=== PATIENT | female | born 1935 | race Caucasian/White ===

== ENCOUNTER 2016-08-16 03:17 | Observation (INO) | payer MEDICARE ==
[2016-08-16] VITALS (9 sets, daily range): BP systolic 148–199; BP diastolic 69–98; PULSE 49–70; RESP 16–24; TEMP 96–97.9; O2SAT 95–100
[~2016-08-16] VITALS: Ht 165.1 cm; Wt 86.5 kg
[~2016-08-16 03:17] MED LIST: ALDA2525 PO; ASCO500C PO; ASPI81TA17 PO; B COTAB3 SL; CENTTAB9 PO; IRONCAP2 PO; LEVO.05 PO; LISI-357 PO; TOPR25TA2 PO; TRAM50 PO; VITA400C70 PO
[2016-08-16] MEDS ORDERED: SODIUM CHLOR 0.9% 1000 ML INJ 1,000 ML IV SCH (03:51)
[2016-08-16] MEDS ORDERED: ALDA2525 PO (03:53)
[2016-08-16] MEDS ORDERED: METO25TA6 PO (03:53)
[2016-08-16] MEDS ORDERED: LISI-519 PO (03:53)
[2016-08-16] MEDS ORDERED: NEXI20CA PO (03:53)
[2016-08-16] MEDS ORDERED: LEVO50TA4 PO (03:57)
[2016-08-16] MEDS ORDERED: PANTOPRAZOLE SODIUM 40 MG VIAL IVP ONE (04:00)
[2016-08-16] MEDS ORDERED: ALUMINUM/MAGNESIUM/SIMETH 30 ML CUP PO ONE (04:00)
[2016-08-16] MEDS ORDERED: LIDOCAINE VISCOUS 2% SOLN 15 ML UDC PO ONE (04:00)
[2016-08-16] MEDS ORDERED: FAMOTIDINE 20 MG/2 ML VIAL IV PUSH ONE (04:00)
[2016-08-16] MEDS ORDERED: SODIUM CHLORIDE 0.9% FLUSH 5 ML FLUSH IVF PRN (04:00)
--- NOTE | 2016-08-16 04:01 | PD ---
HPI Chief Complaint: Abdominal Pain Time Seen by Provider: 03:51 Travel History International Travel<30 days: No Contact w/Intl Traveler<30days: No Traveled to known affect area: No History of Present Illness HPI The patient is an 81-year-old female that complains of upper abdominal pain for 3 hours. She states she does have a history of a stomach ulcer and apparently was put on omeprazole by her sports medicine specialist, Dr. Jansen. She has an appointment with Dr. Cardoza on September 20. She denies any melanotic or bloody stools. She has had a gastric bypass and cholecystectomy. PFSH Past Medical History Heart Rhythm Problems: Yes Cancer: No Cardiac Catheterization: Yes Cardiovascular Problems: Yes High Cholesterol: Yes Chest Pain: Yes (CAD) Coronary Artery Disease: Yes (angioplastty 1994 WITH STENTS ) Diabetes: No Diminished Hearing: No Hepatitis: No Hiatal Hernia: No Hypertension: Yes Medical other: Yes (NARCOLEPSY, ARTHRITIS, BACK PROBLEMS) Neurologic: Yes (NARCOLEPSY) Respiratory: No Immunizations Current: Yes (SHINGLES) Shingles: Yes Thyroid Disease: Yes (HYPO) Influenza Vaccination: Yes Menopausal: Yes Past Surgical History Abdominal Surgery: Yes (gastric bypass, 95, OVARIAN SURGERY) Appendectomy: Yes Cholecystectomy: Yes (1994) Coronary Stent: Yes (1994) Joint Replacement: Yes (BILATERAL KNEE) Pacemaker: No Tonsillectomy: Yes Other Surgery: Yes (CARPAL TUNNEL) Social History Alcohol Use: No Tobacco Use: No Substance Use: No Allergies-Medications (Allergen,Severity, Reaction): Coded Allergies: No Known Allergies (Verified , 08/16/16) Reported Meds & Prescriptions Reported Meds & Active Scripts Active Reported Levothyroxine (Levothyroxine Sodium) 50 Mcg Tab 50 Mcg PO DAILY Metoprolol Succinate ER 24 HR (Metoprolol Succinate) 25 Mg Tab 25 Mg PO BID Lisinopril 5 Mg Tab 5 Mg PO DAILY Aldactazide (HCTZ/Spironolactone) 25-25 Mg Tab 1 Tab PO DAILY Review of Systems Except as stated in HPI: all other systems reviewed are Neg Physical Exam Narrative GENERAL: The patient is alert, oriented 3 and slight apparent distress with her epigastric pain. Her vital signs show blood pressure 150/69 and heart rate of 50 but are otherwise normal. SKIN: Warm and dry. HEAD: Atraumatic. Normocephalic. EYES: Pupils equal and round. No scleral icterus. No injection or drainage. ENT: No nasal bleeding or discharge. Mucous membranes pink and moist. NECK: Trachea midline. No JVD. CARDIOVASCULAR: Regular rate and rhythm. No murmur appreciated. RESPIRATORY: No accessory muscle use. Clear to auscultation. Breath sounds equal bilaterally. GASTROINTESTINAL: Abdomen soft, with tenderness to direct palpation on the midline epigastrium, nondistended. Hepatic and splenic margins not palpable. No guarding or rebound is present. MUSCULOSKELETAL: No obvious deformities. No clubbing. No cyanosis. No edema. NEUROLOGICAL: Awake and alert. No obvious cranial nerve deficits. Motor grossly within normal limits. Normal speech. PSYCHIATRIC: Appropriate mood and affect; insight and judgment normal. Data Data Last Documented VS Vital Signs Date Time Temp Pulse Resp B/P Pulse Ox O2 Delivery O2 Flow Rate FiO2 08/16/16 06:10 64 24 171/79 98 Nasal Cannula 2 177/92 08/16/16 03:25 97.5 Orders Complete Blood Count With Diff (08/16/16 03:51) Comprehensive Metabolic Panel (08/16/16 03:51) Lipase (08/16/16 03:51) Iv Access Insert/Monitor (08/16/16 03:51) Ecg Monitoring (08/16/16 03:51) Oximetry (08/16/16 03:51) Pantoprazole Inj (Protonix Inj) (08/16/16 04:00) Sodium Chlor 0.9% 1000 Ml Inj (Ns 1000 M (08/16/16 03:51) Sodium Chloride 0.9% Flush (Ns Flush) (08/16/16 04:00) Famotidine Inj (Pepcid Inj) (08/16/16 04:00) Al-Mag Hy-Si 40-40-4 Mg/Ml Liq (Mag-Al P (08/16/16 04:00) Lidocaine 2% Viscous (Xylocaine 2% Visco (08/16/16 04:00) Urinalysis - C+S If Indicated (08/16/16 04:01) Hydromorphone Pf Inj (Dilaudid Pf Inj) (08/16/16 04:15) Ondansetron Inj (Zofran Inj) (08/16/16 04:15) Hydromorphone Pf Inj (Dilaudid Pf Inj) (08/16/16 05:15) Ct Abd/Pel W/O Iv Contrast (08/16/16 04:51) Hydromorphone Pf Inj (Dilaudid Pf Inj) (08/16/16 06:00) Ondansetron Inj (Zofran Inj) (08/16/16 06:00) Creatine Kinase (Cpk) (08/16/16 06:01) Troponin I (08/16/16 06:01) Chest, Single Ap (08/16/16 06:01) Electrocardiogram (08/16/16 06:01) Lactic Acid (08/16/16 06:40) Place In Observation (08/16/16 ) Vital Signs (Adult) Q4H (08/16/16 06:40) Activity Oob With Assistance (08/16/16 06:40) ^ Casino Controller / Telemetry .CONTINUOUS (08/16/16 06:40) Diet Npo (08/16/16 Breakfast) Sodium Chloride 0.9% Flush (Ns Flush) (08/16/16 06:45) Sodium Chloride 0.9% Flush (Ns Flush) (08/16/16 09:00) Ondansetron Inj (Zofran Inj) (08/16/16 06:45) Basic Metabolic Panel (Bmp) (08/17/16 06:00) Complete Blood Count With Diff (08/17/16 06:00) Case Management Consult (08/16/16 06:40) Scd Bilateral/Knee High STEFANO.BID (08/16/16 06:40) Naloxone Inj (Narcan Inj) (08/16/16 06:45) Hydromorphone Pf Inj (Dilaudid Pf Inj) (08/16/16 06:45) Consult Gastroenterology (08/16/16 ) Labs Laboratory Tests Test 08/16/16 08/16/16 03:30 04:10 White Blood Count 6.1 TH/MM3 Red Blood Count 4.37 MIL/MM3 Hemoglobin 12.4 GM/DL Hematocrit 38.7 % Mean Corpuscular Volume 88.6 FL Mean Corpuscular Hemoglobin 28.5 PG Mean Corpuscular Hemoglobin 32.1 % Concent Red Cell Distribution Width 13.8 % Platelet Count 318 TH/MM3 Mean Platelet Volume 7.3 FL Neutrophils (%) (Auto) 55.5 % Lymphocytes (%) (Auto) 30.8 % Monocytes (%) (Auto) 9.4 % Eosinophils (%) (Auto) 3.6 % Basophils (%) (Auto) 0.7 % Neutrophils # (Auto) 3.4 TH/MM3 Lymphocytes # (Auto) 1.9 TH/MM3 Monocytes # (Auto) 0.6 TH/MM3 Eosinophils # (Auto) 0.2 TH/MM3 Basophils # (Auto) 0.0 TH/MM3 CBC Comment DIFF FINAL Differential Comment Sodium Level 143 MEQ/L Potassium Level 4.8 MEQ/L Chloride Level 111 MEQ/L Carbon Dioxide Level 23.4 MEQ/L Anion Gap 9 MEQ/L Blood Urea Nitrogen 27 MG/DL Creatinine 1.70 MG/DL Estimat Glomerular Filtration 29 ML/MIN Rate Random Glucose 102 MG/DL Calcium Level 9.2 MG/DL Total Bilirubin 0.4 MG/DL Aspartate Amino Transf 14 U/L (AST/SGOT) Alanine Aminotransferase 14 U/L (ALT/SGPT) Alkaline Phosphatase 75 U/L Total Protein 6.9 GM/DL Albumin 3.8 GM/DL Lipase 296 U/L Urine Color YELLOW Urine Turbidity CLEAR Urine pH 5.5 Urine Specific [place] 1.017 Urine Protein NEG mg/dL Urine Glucose (UA) NEG mg/dL Urine Ketones NEG mg/dL Urine Occult Blood NEG Urine Nitrite NEG Urine Bilirubin NEG Urine Leukocyte Esterase NEG Urine WBC 0-2 /hpf Urine Squamous Epithelial 0-5 /hpf Cells Urine Hyaline Casts 10-14 /lpf Urine Mucus FEW /lpf Microscopic Urinalysis Comment CULT NOT INDICATED MDM Medical Decision Making Medical Screen Exam Complete: Yes Emergency Medical Condition: Yes Medical Record Reviewed: Yes Interpretation(s) The CBC is normal. The complete metabolic profile shows a BUN of 27, creatinine 1.7 with GFR of only 29 but is otherwise unremarkable. The lipase is normal. The urinalysis is normal and culture is not indicated. The EKG shows sinus rhythm with a rate of 66 and is a normal EKG. The CT abdomen/ pelvis without IV contrast shows mild inflammatory changes involving the hepatic flexure area no perforation or abscess is present. Incidentally noted is diverticulosis of the colon, status post cholecystectomy and gastric bypass. The EKG shows sinus rhythm with PACs at a rate of [address] elevation or depression. Differential Diagnosis Stomach ulcer, reflux esophagitis, gastritis, abdominal pain etiology undetermined, colitis Narrative Course The patient keeps having recurrent episodes of 5 minutes of severe pain in 20- 30 minutes of virtually no pain at all. The pain is in the right upper quadrant and right middle quadrant and not for one would expect intussusception. Moreover, the CT abdomen pelvis shows inflammation at the hepatic flexure. Impression: Colitis Plan: Patient will be 23 hour observation, it is hoped that Dr. Cardoza can consult on this patient. Physician Communication Physician Communication I discussed the patient with Dr. Mcfadden. Diagnosis Primary Impression: Colitis Additional Impression: Intractable abdominal pain Admitting Information Admitting Physician Requests: Observation Lon Quinones MD Aug 16, 2016 04:00
[2016-08-16 04:10] LABS: AUTOMATED NEUTROPHIL # 3.4 TH/MM3 (1.8-7.7); BASOPHIL % 0.7 % (0.0-2.0); EOSINOPHIL # 0.2 TH/MM3 (0-0.4); EOSINOPHIL % 3.6 % (0.0-4.0); HEMATOCRIT 38.7 % (35.0-46.0); HEMO FLAGS DIFF FINAL; LYMPH % 30.8 % (9.0-44.0); LYMPHOCYTE # 1.9 TH/MM3 (1.0-4.8); MEAN CELL VOLUME 88.6 FL (80.0-100.0); MEAN CORPUSCULAR HEMOGLOBIN 28.5 PG (27.0-34.0); MEAN CORPUSCULAR HGB CONC 32.1 % (32.0-36.0); MONO % 9.4 % (0.0-8.0); NEUT % 55.5 % (16.0-70.0); PLATELET COUNT 318 TH/MM3 (150-450); RED BLOOD COUNT 4.37 MIL/MM3 (4.00-5.30); RED CELL DISTRIBUTION WIDTH 13.8 % (11.6-17.2); WHITE BLOOD COUNT 6.1 TH/MM3 (4.0-11.0)
[2016-08-16] MEDS ORDERED: ONDANSETRON HCL 4 MG/2 ML VIAL IV ONE ×2 (04:15→06:00)
[2016-08-16] MEDS ORDERED: HYDROmorphone HCL PF 1 MG/ML VIAL IVP ONE ×3 (04:15→06:00)
[2016-08-16 04:24] LABS: CHLORIDE 111 MEQ/L (98-107); POTASSIUM 4.8 MEQ/L (3.5-5.1); SODIUM (NA) 143 MEQ/L (136-145)
[2016-08-16 04:27] LABS: BLOOD, URINE NEG (NEG); GLUCOSE,URINE NEG (NEG); KETONE, URINE NEG (NEG); NITRITE,URINE NEG (NEG); PH, URINE 5.5 (5.0-8.5)
[2016-08-16 04:27] LABS: ANION GAP 9 MEQ/L (5-15); BICARBONATE 23.4 MEQ/L (21.0-32.0)
[2016-08-16 04:28] LABS: BLOOD UREA NITROGEN 27 MG/DL (7-18)
[2016-08-16 04:30] LABS: ALT (GPT) 14 U/L (10-53); AST (GOT) 14 U/L (15-37)
[2016-08-16 04:31] LABS: GLOMERULAR FILTRATION RATE 29 ML/MIN (>89)
[2016-08-16 04:32] LABS: TOTAL BILIRUBIN ADULT 0.4 MG/DL (0.2-1.0)
[2016-08-16 04:32] LABS: URINE COLOR YELLOW (YELLW/STRAW)
[2016-08-16 04:33] LABS: ALKALINE PHOSPHATASE 75 U/L (45-117)
[2016-08-16 04:33] LABS: MUCUS URINE FEW /lpf (OCC)
[2016-08-16 04:34] LABS: SQUAMOUS EPITHELIAL CELL URINE 0-5 /hpf (0-5)
[2016-08-16 04:35] LABS: COMMENT (UR) CULT NOT INDICATED; CULTURE IF INDICATED CULT NOT INDICATED; WBC, URINE 0-2 /hpf (0-5)
--- NOTE | 2016-08-16 06:18 | RADHPO ---
EXAM DATE/TIME: 08/16/2016 05:30 [facility] COMPARISON: No previous studies available for comparison. INDICATIONS : Epigastric pain. ORAL CONTRAST: No oral contrast ingested. RADIATION DOSE: 16.19 CTDIvol (mGy) MEDICAL HISTORY : Cardiovascular disease. SURGICAL HISTORY : Gastric bypass. Appendectomy.Cholecystectomy. ENCOUNTER: Initial ACUITY: 1 day PAIN SCALE: 10/10 LOCATION: Bilateral upper quadrant TECHNIQUE: Volumetric scanning of the abdomen and pelvis was performed. Using automated exposure control and ad justment of the mA and/or kV according to patient size, radiation dose was kept as low as reasonably achievable to obtain optimal diagnostic quality images. FINDINGS: LOWER LUNGS: The visualized lower lungs are clear. LIVER: Homogeneous density without lesion. There is no dilation of the biliary tree. Cholecystectomy. SPLEEN: Normal size without lesion. PANCREAS: Within normal limits. KIDNEYS: Normal in size and shape. There is no mass, stone, or hydronephrosis. ADRENAL GLANDS: Within normal limits. VASCULAR: There is no aortic aneurysm. BOWEL/MESENTERY: Diverticulosis of the colon. There are some mild inflammatory changes involving the hepatic flexure. There is no free intraperitoneal air or fluid. Gastric bypass. ABDOMINAL WALL: Within normal limits. RETROPERITONEUM: There is no lymphadenopathy. BLADDER: No wall thickening or mass. REPRODUCTIVE: Within normal limits. INGUINAL: There is no lymphadenopathy or hernia. MUSCULOSKELETAL: Extensive degenerative changes and scoliosis. CONCLUSION: 1. Mild inflammatory changes involving the hepatic flexure. No perforation or abscess. 2. Diverticulosis of the colon. 3. Status post cholecystectomy. 4. Gastric bypass. Elia Hong MD on August 16, 2016 at 6:11 Board Certified Radiologist. This report was verified electronically.
[2016-08-16] MEDS ORDERED: SODIUM CHLORIDE 0.9% FLUSH 5 ML FLUSH FLUSH PRN (06:45)
[2016-08-16] MEDS ORDERED: ONDANSETRON HCL 4 MG/2 ML VIAL IVP PRN (06:45)
[2016-08-16] MEDS ORDERED: NALOXONE HCL 0.4 MG/ML AMP IV PRN (06:45)
--- NOTE | 2016-08-16 06:47 | RADHPO ---
EXAM DATE/TIME: 08/16/2016 06:15 [facility] COMPARISON: No previous studies available for comparison. INDICATIONS : Nausea, chest pain MEDICAL HISTORY : Cardiovascular disease. SURGICAL HISTORY : Cardiac stents ENCOUNTER: Initial ACUITY: 1 day PAIN SCORE: Non-responsive. LOCATION: Bilateral chest FINDINGS: A single view of the chest demonstrates cardiomegaly with slight interstitial prominence. The cardiom ediastinal contours are unremarkable. Osseous structures are intact. Metallic density overlies the a ortic arch is likely external to patient. CONCLUSION: 1. Cardiomegaly and slight interstitial prominence. Elai Hong MD on August 16, 2016 at 6:45 Board Certified Radiologist. This report was verified electronically.
[2016-08-16 07:04] LABS: CREATINE KINASE 99 U/L (26-192)
[2016-08-16] MEDS: SODIUM CHLORIDE 0.9% FLUSH 5 ML FLUSH FLUSH SCH ×2 (11:46→21:55)
--- NOTE | 2016-08-16 14:07 | EKG ---
Date Performed: 08/16/2016 Time Performed: 05:57:56 PTAGE: 81 years EKG: Sinus rhythm with PAC(s). Left anterior fascicular block Possible anterior infarct - age undetermined Since previ ous tracing, no significant change noted Abnormal ECG PREVIOUS TRACING : 02/09/2012 12.19 DOCTOR: Adair Tomlinson Interpretating Date/Time 08/16/2016 14:00:13
--- NOTE | 2016-08-16 14:11 | HHI.HP ---
cc: Janett Addison MD [facility] Janett Addison MD Admission Diagnosis intractable abdominal pain, colitis Diagnoses: Chief Complaint: Abdominal pain Travel History International Travel<30 Days: No Contact w/Intl Traveler <30 Da: No Traveled to Known Affected Are: No History of Present Illness This patient is 81-year-old female with a history of diverticular disease who came to the hospital with diarrhea and abdominal discomfort. She does have a history also of stomach ulcers which she has been taking omeprazole for her. Patient said the pain had been intermittent and quite severe. She did come to the emergency room for further evaluation after Pepto-Bismol at home was ineffective. She was given Dilaudid in the emergency room which seemed to help with her pain. CT abdomen pelvis on my review does show some inflammation apparent flexion. Patient started on IV antibiotics and recommended for further observation the hospital Review of Systems Endocrine: DENIES: Abnorml menstrual pattern, Heat/cold intolerance, Polydipsia , Polyuria, Polyphagia Eyes: DENIES: Blurred vision, Diplopia, Eye inflammation, Eye pain, Vision loss , Photosensitivity, Double Vision Ears, nose, mouth, throat: DENIES: Tinnitus, Hearing loss, Vertigo, Nasal discharge, Oral lesions, Throat pain, Hoarseness, Ear Pain, Running Nose, Epistaxis, Sinus Pain, Toothache, Odynophagia Respiratory: DENIES: Apneas, Cough, Snoring, Wheezing, Hemoptysis, Sputum production, Shortness of breath Cardiovascular: DENIES: Chest pain, Palpitations, Syncope, Dyspnea on Exertion , PND, Lower Extremity Edema, Orthopnea, Claudication Gastrointestinal: COMPLAINS OF: Diarrhea Genitourinary: DENIES: Abnormal vaginal bleeding, Dysmenorrhea, Dyspareunia, Sexual dysfunction, Urinary frequency, Urinary incontinence, Urgency, Hematuria , Dysuria, Nocturia, Vaginal discharge Musculoskeletal: DENIES: Joint pain, Muscle aches, Stiffness, Joint Swelling, Back pain, Neck pain Integumentary: DENIES: Abnormal pigmentation, Pruritus, Rash, Nail changes, Breast masses, Breast skin changes, Nipple discharge Neurologic: DENIES: Abnormal gait, Headache, Localized weakness, Paresthesias, Seizures, Speech Problems, Tremor, Poor Balance Psychiatric: DENIES: Anxiety, Confusion, Mood changes, Depression, Hallucinations, Agitation, Suicidal Ideation, Homicidal Ideation, Delusions Past Family Social History Past Medical History Hypertension Coronary artery disease History of gastric bypass Past Surgical History Gastric bypass And ovarian surgery Cardiac stent Cholecystectomy Carpal tunnel surgery biLateral knee replacements Reported Medications Reviewed in the medical record, nothing new Allergies: Coded Allergies: No Known Allergies (Verified , 08/16/16) Active Ordered Medications Reviewed in the medical record Family History Family history of hypertension Social History Lives with her son, no tobacco or alcohol dependency Physical Exam Vital Signs Vital Signs Date Time Temp Pulse Resp B/P Pulse Ox O2 Delivery O2 Flow Rate FiO2 08/16/16 12:00 96.0 70 20 160/84 96 08/16/16 08:59 49 17 191/97 100 Nasal Cannula 2 08/16/16 07:02 97.4 61 17 151/72 96 Nasal Cannula 2 08/16/16 07:02 97.4 61 17 151/72 96 Nasal Cannula 2 08/16/16 06:10 64 24 171/79 98 Nasal Cannula 2 177/92 08/16/16 04:30 49 20 186/98 96 08/16/16 04:07 65 18 199/98 100 Room Air 08/16/16 03:25 97.5 50 16 150/69 100 Room Air Physical Exam GENERAL: This is a well-nourished, well-developed patient, in no apparent distress. SKIN: No rashes, ecchymoses or lesions. Cool and dry. HEAD: Atraumatic. Normocephalic. No temporal or scalp tenderness. EYES: Pupils equal round and reactive. Extraocular motions intact. No scleral icterus. No injection or drainage. ENT: Edentulous, Nose without bleeding, purulent drainage or septal hematoma. Throat without erythema, tonsillar hypertrophy or exudate. Uvula midline. Airway patent. NECK: Trachea midline. No JVD or lymphadenopathy. Supple, nontender, no meningeal signs. CARDIOVASCULAR: Regular rate and rhythm without murmurs, gallops, or rubs. RESPIRATORY: Clear to auscultation. Breath sounds equal bilaterally. No wheezes , rales, or rhonchi. GASTROINTESTINAL: Abdomen soft, non-tender, nondistended. No hepato-splenomegaly , or palpable masses. No guarding. MUSCULOSKELETAL: Extremities without clubbing, cyanosis, or edema. No joint tenderness, effusion, or edema noted. No calf tenderness. Negative Homans sign bilaterally. NEUROLOGICAL: Awake and alert. Cranial nerves II through XII intact. Motor and sensory grossly within normal limits. Five out of 5 muscle strength in all muscle groups. Normal speech. Laboratory Laboratory Tests Test 08/16/16 08/16/16 08/16/16 03:30 04:10 07:15 White Blood Count 6.1 Red Blood Count 4.37 Hemoglobin 12.4 Hematocrit 38.7 Mean Corpuscular Volume 88.6 Mean Corpuscular Hemoglobin 28.5 Mean Corpuscular Hemoglobin 32.1 Concent Red Cell Distribution Width 13.8 Platelet Count 318 Mean Platelet Volume 7.3 Neutrophils (%) (Auto) 55.5 Lymphocytes (%) (Auto) 30.8 Monocytes (%) (Auto) 9.4 Eosinophils (%) (Auto) 3.6 Basophils (%) (Auto) 0.7 Neutrophils # (Auto) 3.4 Lymphocytes # (Auto) 1.9 Monocytes # (Auto) 0.6 Eosinophils # (Auto) 0.2 Basophils # (Auto) 0.0 CBC Comment DIFF FINAL Differential Comment Sodium Level 143 Potassium Level 4.8 Chloride Level 111 Carbon Dioxide Level 23.4 Anion Gap 9 Blood Urea Nitrogen 27 Creatinine 1.70 Estimat Glomerular Filtration 29 Rate Random Glucose 102 Calcium Level 9.2 Total Bilirubin 0.4 Aspartate Amino Transf 14 (AST/SGOT) Alanine Aminotransferase 14 (ALT/SGPT) Alkaline Phosphatase 75 Total Creatine Kinase 99 Troponin I LESS THAN 0.02 Total Protein 6.9 Albumin 3.8 Lipase 296 Urine Color YELLOW Urine Turbidity CLEAR Urine pH 5.5 Urine Specific [place] 1.017 Urine Protein NEG Urine Glucose (UA) NEG Urine Ketones NEG Urine Occult Blood NEG Urine Nitrite NEG Urine Bilirubin NEG Urine Leukocyte Esterase NEG Urine WBC 0-2 Urine Squamous Epithelial 0-5 Cells Urine Hyaline Casts 10-14 Urine Mucus FEW Microscopic Urinalysis Comment CULT NOT INDICATED Lactic Acid Level 0.4 Result Diagram: 08/16/16 0330 08/16/16 0330 Imaging Last Impressions Chest X-Ray 08/16/16 0601 Signed Impressions: Service Date/Time: Tuesday, August 16, 2016 06:15 - CONCLUSION: 1. Cardiomegaly and slight interstitial prominence. Elia Hong MD Abdomen/Pelvis CT 08/16/16 0451 Signed Impressions: Service Date/Time: Tuesday, August 16, 2016 05:30 - CONCLUSION: 1. Mild inflammatory changes involving the hepatic flexure. No perforation or abscess. 2. Diverticulosis of the colon. 3. Status post cholecystectomy. 4. Gastric bypass. Elia Hong MD Assessment and Plan Problem List: (1) Intractable abdominal pain ICD Code: R10.9 Status: Acute Plan: Etiology unclear but may be related to colitis we'll add Cipro, Flagyl, GI to follow Continue current as needed pain medicines Clear liquid diet (2) Thyroid disease ICD Code: E07.9 Status: Acute Plan: Continue Synthroid (3) HTN (hypertension) ICD Code: I10 Status: Acute Plan: Continue metoprolol, lisinopril, hydrochlorothiazide and Aldactone Patient with a history of coronary disease (4) CKD (chronic kidney disease) stage 4, GFR 15-29 ml/min ICD Code: N18.4 Status: Acute Plan: We'll avoid any further nephrotoxic medications. Continue home medicines however Assessment and Plan Plan of care to be determined by Hospital course Discussed Condition With Patient Shoshana Izaguirre MD Aug 16, 2016 14:11
[2016-08-16] MEDS: metroNIDAZOLE 500 MG INJ 100 ML IV SCH ×2 (15:04→21:55)
[2016-08-16] MEDS: CIPROFLOXACIN 200 MG PREMIX 100 ML IV SCH (15:04)
[2016-08-16] MEDS: HYDROmorphone HCL PF 1 MG/ML VIAL IV PUSH PRN ×2 (16:48→22:49)
--- NOTE | 2016-08-16 18:07 | MB ---
cc: KRUPA FERRARA DATE OF CONSULTATION 08/16/2016 DATE OF 1935 REASON FOR CONSULTATION Abdominal pain. HISTORY OF PRESENT ILLNESS Ms. Hernandez is a pleasant 81-year-old lady with past medical history significant for hypertension, coronary artery disease, history of gastric bypass, diverticular disease and peptic ulcer disease who presented to the hospital with complaints of abdominal pain and loose stools. The patient is known to our service. She had a recent endoscopy back in June 2016 with evidence of anastomotic ulcer secondary to NSAID use. She reports that last night she started experiencing significant abdominal pain located in both flanks radiating to her medial area. At first it was 5/10 but then suddenly it became 10/10 in intensity. Pain was intermittent, not relieved by any position. She does take at times Excedrin, Tylenol and tramadol for pain control. She reports a couple of loose stools, however that is not unusual for her but nothing since this morning. She denies any episode of hematemesis, melena or hematochezia. Initial evaluation showed normal hemoglobin of 12.4 with a white count 6.1. CT of the abdomen showed diverticulosis of the colon as well as mild inflammatory changes involving the hepatic flexure. She was given pain medications, started on antibiotic and Flagyl which seemed to help her pain. At this time she denies any pain, she has not had any bowel movement since early this morning and is passing gas. PAST MEDICAL HISTORY Significant for: 1. Hypertension. 2. Coronary artery disease. 3. History of gastric bypass. 4. Diverticulosis. 5. Anastomotic ulcer. PAST SURGICAL HISTORY 1. Gastric bypass. 2. Cardiac stent. 3. Cholecystectomy. 4. Carpal tunnel surgery. 5. Bilateral knee replacement. ALLERGIES NO KNOWN DRUG ALLERGIES. SOCIAL HISTORY She drinks a glass of wine daily. Otherwise denies any drug or drug use. FAMILY HISTORY History of hypertension. REVIEW OF SYSTEMS Positive for abdominal pain and loose stools. Otherwise 14-point medical review of systems is negative. MEDICATIONS Current medications: 1. Cipro 400 mg IV q.12h. 2. Metronidazole 500 milligrams IV q.8h. 3. Zofran 4 milligrams p.o. q.6h as needed. 4. Dilaudid 0.2 milligrams q.4h. PHYSICAL EXAMINATION VITAL SIGNS: Temperature is 96, heart rate 70, respiratory rate is 20, blood pressure 160/84, sating 96% on room air. GENERAL: She is in no acute distress lying comfortably in bed. HEENT: Normocephalic, atraumatic. non-icteric sclerae. Moist mucosa. NECK: Supple. No JVD. No lymphadenopathy. CARDIOVASCULAR: Regular rhythm and rate. S1-S2. No murmurs or gallops. LUNGS: Clear to auscultation bilaterally. No wheeze or rhonchi. ABDOMEN: Soft, nontender, nondistended. Bowel sounds are present. No guarding noted. EXTREMITIES: No cyanosis or edema. Pulses 2+ bilaterally. NEUROLOGICAL: She is alert and oriented times three. Cranial nerves intact. Strength 5/5 throughout. No focal deficit. LABORATORY DATA White blood cell count 6.1, hemoglobin is 12.4, platelet count of 318. Sodium 143, potassium 4.8, chloride 111, BUN 27, creatinine 1.7, AST 14, ALT 14, alkaline phosphatase 75, lipase 296, albumin 3.8. Lactic acid 0.4. IMAGING STUDIES CT of the abdomen and pelvis done on 08/16/2016 showed diverticulosis of the colon. Some mild inflammatory changes involving the hepatic flexure. No free intraperitoneal air fluid as well as areas of previous gastric bypass and cholecystectomy. ASSESSMENT Ms. Hernandez is a very pleasant 81-year-old lady with a history of coronary artery disease, diverticulosis, gastric bypass and recently diagnosed with anastomotic ulcer on endoscopy secondary to NSAID use who presents with abdominal pain and loose stools. Initial workup showed mild inflammatory changes in the hepatic flexure concerning for colitis. PLAN 1. Abdominal pain / abnormal CT: concerning for possible acute colitis, improving after given pain medication and started on empiric antibiotics with Cipro and Flagyl. Recommend to continue current management which seems to be helping. We discussed that if symptoms continue, she may require colonoscopy, but she is refusing any invasive procedure at this time. We will continue supportive care. If the patient is able to tolerate a diet she could potentially be discharged by tomorrow with a course of p.o. antibiotics to complete the 10 days. 2. We will make her promise to address her primary team. We would like to thank Dr. Izagurire for this consultation and letting us participate in the care of Ms. Hernandez. Please do not hesitate to call us with any question or concerns. MD NAHUM Garcia /3:59 PM /5:28 PM MARIANNA
[2016-08-16] MEDS ORDERED: ASPI81TA17 PO (21:39)
[2016-08-16] MEDS ORDERED: ASPIRIN EC 81 MG TABEC PO ONE (21:45)
[2016-08-16] MEDS ORDERED: diphenhydrAMINE HCL 25 MG CAP PO ONE (21:45)
[2016-08-17] VITALS: BP 139/73; PULSE 60; RESP 18; TEMP 98.7; O2SAT 94
[2016-08-17] MEDS: CIPROFLOXACIN 200 MG PREMIX 100 ML IV SCH (03:28)
[2016-08-17] MEDS: metroNIDAZOLE 500 MG INJ 100 ML IV SCH (06:17)
[2016-08-17 06:37] LABS: AUTOMATED NEUTROPHIL # 3.4 TH/MM3 (1.8-7.7); EOSINOPHIL # 0.1 TH/MM3 (0-0.4); EOSINOPHIL % 2.2 % (0.0-4.0); HEMATOCRIT 34.3 % (35.0-46.0); HEMO FLAGS DIFF FINAL; LYMPH % 20.5 % (9.0-44.0); MEAN CELL VOLUME 87.6 FL (80.0-100.0); MEAN CORPUSCULAR HEMOGLOBIN 28.5 PG (27.0-34.0); MEAN CORPUSCULAR HGB CONC 32.6 % (32.0-36.0); MONO % 8.8 % (0.0-8.0); NEUT % 67.5 % (16.0-70.0); PLATELET COUNT 259 TH/MM3 (150-450); RED BLOOD COUNT 3.91 MIL/MM3 (4.00-5.30); RED CELL DISTRIBUTION WIDTH 13.5 % (11.6-17.2); WHITE BLOOD COUNT 4.9 TH/MM3 (4.0-11.0)
[2016-08-17 06:43] VITALS: BP 172/66; PULSE 40; RESP 14; O2SAT 95
[2016-08-17 07:01] LABS: POTASSIUM 4.4 MEQ/L (3.5-5.1)
[2016-08-17 07:04] LABS: BICARBONATE 23.8 MEQ/L (21.0-32.0)
[2016-08-17 08:00] VITALS: BP 146/78; PULSE 87; RESP 18; TEMP 96.3; O2SAT 98
[2016-08-17] MEDS: SODIUM CHLORIDE 0.9% FLUSH 5 ML FLUSH FLUSH SCH (08:57)
[2016-08-17] MEDS ORDERED: METOPROLOL SUCCINATE 25 MG EXTENDED RELEASE TAB PO SCH (09:00)
[2016-08-17] MEDS ORDERED: SPIRONOLACTONE/HCTZ 25 MG/25 MG TAB PO SCH (09:00)
[2016-08-17] MEDS ORDERED: LEVOTHYROXINE SODIUM 50 MCG TAB PO SCH (09:00)
[2016-08-17] MEDS ORDERED: LISINOPRIL 5 MG TAB PO SCH (09:00)
[2016-08-17] MEDS ORDERED: HYDROCHLOROTHIAZIDE 25 MG TAB PO SCH (10:00)
[2016-08-17] MEDS ORDERED: SPIRONOLACTONE 25 MG TAB PO SCH (10:00)
--- NOTE | 2016-08-17 10:13 | HHI.GIFU ---
Subjective Remarks Pt doing well. denies any significant abdominal pain this morning. Tolerating full liquids, wants to advance diet. No BM's reported. Objective Vitals I&O Vital Signs Date Time Temp Pulse Resp B/P Pulse Ox O2 Delivery O2 Flow Rate FiO2 08/17/16 06:43 40 14 172/66 95 08/17/16 00:00 98.7 60 18 139/73 94 08/16/16 20:00 97.9 63 18 159/78 95 08/16/16 16:00 97.3 56 20 148/72 99 08/16/16 12:00 96.0 70 20 160/84 96 I/O 08/16/16 08/16/16 08/16/16 08/17/16 08/17/16 08/17/16 07:00 15:00 23:00 07:00 15:00 23:00 Intake Total 0 ml 258 ml 280 ml Balance 0 ml 258 ml 280 ml Intake IV Total 0 ml 258 ml 280 ml Laboratory Laboratory Tests Test 08/17/16 06:25 White Blood Count 4.9 Red Blood Count 3.91 Hemoglobin 11.2 Hematocrit 34.3 Mean Corpuscular Volume 87.6 Mean Corpuscular Hemoglobin 28.5 Mean Corpuscular Hemoglobin 32.6 Concent Red Cell Distribution Width 13.5 Platelet Count 259 Mean Platelet Volume 7.4 Neutrophils (%) (Auto) 67.5 Lymphocytes (%) (Auto) 20.5 Monocytes (%) (Auto) 8.8 Eosinophils (%) (Auto) 2.2 Basophils (%) (Auto) 1.0 Neutrophils # (Auto) 3.4 Lymphocytes # (Auto) 1.0 Monocytes # (Auto) 0.4 Eosinophils # (Auto) 0.1 Basophils # (Auto) 0.0 CBC Comment DIFF FINAL Differential Comment Sodium Level 145 Potassium Level 4.4 Chloride Level 113 Carbon Dioxide Level 23.8 Anion Gap 8 Blood Urea Nitrogen 18 Creatinine 1.50 Estimat Glomerular Filtration 33 Rate Random Glucose 94 Calcium Level 8.4 Physical Exam HEENT: Pupils round and reactive to light; normocephalic; atraumatic; no jaundice. Throat is clear. ABDOMEN: Soft, nondistended, nontender; no hepatosplenomegaly; bowel sounds are present in all four quadrants. EXTREMITIES: No clubbing, cyanosis, or edema. SKIN: Normal; no rash; no jaundice. ARMORER TECHNICIAN: No focal deficits; alert and oriented times three. Assessment and Plan Assessment: (1) Colitis Plan 1. Abdominal pain/colitis - continue supportive care - advance diet, if tolerates lunch, OK to DC from GI standpoint - recommend to complete 7-10 days of Cipro (pt refusing Flagyl due to side effects) - pain management as per primary team - follow up with Dr. Jansen upon discharge 2. All other medical problems to be addressed by primary team. Morris White MD Aug 17, 2016 10:13
[2016-08-17] MEDS ORDERED: CIPR-9 PO (11:46)
--- NOTE | 2016-08-17 11:46 | HHI.DCPOC ---
Discharge Care Plan Diagnosis: (1) Colitis Goals to Promote Your Health * To prevent worsening of your condition and complications * To maintain your health at the optimal level Directions to Meet Your Goals Take your medications as prescribed Follow your dietary instruction Follow activity as directed Keep your appointments as scheduled Take your immunizations and boosters as scheduled If your symptoms worsen call your PCP, if no PCP go to Urgent Care Center or Emergency Room Smoking is Dangerous to Your Health. Avoid second hand smoke Call the 24-hour hour crisis hotline for domestic abuse at Shoshana Izaguirre MD Aug 17, 2016 11:46
--- NOTE | 2016-08-17 11:49 | HHI.DS ---
cc: Janett Addison MD Discharge Summary Admission Date Aug 16, 2016 at 06:57 Discharge Date: Aug 17, 2016 Admitting Diagnosis intractable abdominal pain, colitis (1) Intractable abdominal pain ICD Code: R10.9 (2) Thyroid disease ICD Code: E07.9 (3) HTN (hypertension) ICD Code: I10 (4) CKD (chronic kidney disease) stage 4, GFR 15-29 ml/min ICD Code: N18.4 Procedures none Brief History - From Admission This patient is 81-year-old female with a history of diverticular disease who came to the hospital with diarrhea and abdominal discomfort. She does have a history also of stomach ulcers which she has been taking omeprazole for her. Patient said the pain had been intermittent and quite severe. She did come to the emergency room for further evaluation after Pepto-Bismol at home was ineffective. She was given Dilaudid in the emergency room which seemed to help with her pain. CT abdomen pelvis on my review does show some inflammation apparent flexion. Patient started on IV antibiotics and recommended for further observation the hospital CBC/BMP: 08/17/16 0625 08/17/16 0625 Significant Findings Laboratory Tests Test 08/16/16 08/16/16 08/17/16 03:30 04:10 06:25 Monocytes (%) (Auto) 9.4 % (0.0-8.0) 8.8 % (0.0-8.0) Chloride Level 111 MEQ/L 113 MEQ/L (98-107) (98-107) Blood Urea Nitrogen 27 MG/DL (7-18) Creatinine 1.70 MG/DL 1.50 MG/DL (0.50-1.00) (0.50-1.00) Estimat Glomerular Filtration 29 ML/MIN (>89) 33 ML/MIN (>89) Rate Aspartate Amino Transf 14 U/L (15-37) (AST/SGOT) Troponin I LESS THAN 0.02 NG/ML (0.02-0.05) Urine Hyaline Casts 10-14 /lpf (RARE) Urine Mucus FEW /lpf (OCC) Red Blood Count 3.91 MIL/MM3 (4.00-5.30) Hemoglobin 11.2 GM/DL (11.6-15.3) Hematocrit 34.3 % (35.0-46.0) Calcium Level 8.4 MG/DL (8.5-10.1) Imaging Last Impressions Chest X-Ray 08/16/16 0601 Signed Impressions: Service Date/Time: Tuesday, August 16, 2016 06:15 - CONCLUSION: 1. Cardiomegaly and slight interstitial prominence. Elia Hong MD Abdomen/Pelvis CT 08/16/16 0451 Signed Impressions: Service Date/Time: Tuesday, August 16, 2016 05:30 - CONCLUSION: 1. Mild inflammatory changes involving the hepatic flexure. No perforation or abscess. 2. Diverticulosis of the colon. 3. Status post cholecystectomy. 4. Gastric bypass. Elia Hong MD PE at Discharge GENERAL: This is a well-nourished, well-developed patient, in no apparent distress. CARDIOVASCULAR: Regular rate and rhythm without murmurs, gallops, or rubs. RESPIRATORY: Clear to auscultation. Breath sounds equal bilaterally. No wheezes , rales, or rhonchi. GASTROINTESTINAL: Abdomen soft, non-tender, nondistended. Normal active bowel sounds MUSCULOSKELETAL: Extremities without clubbing, cyanosis, or edema. NEURO: Alert & Oriented x4 to person, place, time, situation. Moves all ext x4 Pt update on day of discharge Patient seen and evaluated today in follow-up for abdominal pain secondary to colitis. Patient not tolerating Flagyl but will continue with Cipro. GI consultation appreciated. Otherwise pain is better per patient discharge plans discussed with her and she is agreeable. Hospital Course This patient's 81-year-old female was treated for mild episode colitis which causes abdominal discomfort. Patient was discharged home after a trial of antibiotics which she tolerated. Her diet was tolerating her pain was better. Pt Condition on Discharge: Good Discharge Disposition: Discharge Home Discharge Time: > 30 minutes Discharge Instructions DIET: Follow Instructions for: Heart Healthy Diet Activities you can perform: Regular-No Restrictions Follow up Referrals: Gastroenterology with Adriel Jansen MD New Medications: Ciprofloxacin (Cipro) 500 Mg Tab 500 MG PO BID Infection #6 Ref 0 TAB Continued Medications: Aspirin (Aspirin EC Low Dose) 81 Mg Tab 81 MG PO DAILY Levothyroxine (Levothyroxine) 50 Mcg Tab 50 MCG PO DAILY Thyroid #30 Ref 0 TAB Lisinopril (Lisinopril) 5 Mg Tab 5 MG PO DAILY Blood Pressure Management #30 Ref 0 TAB Metoprolol Succinate ER 24 HR (Metoprolol Succinate ER 24 HR) 25 Mg Tab 25 MG PO BID #30 Ref 0 TAB Spironolactone-Hydrochlorothiazide (Aldactazide) 25-25 Mg Tab 1 TAB PO DAILY #30 Ref 0 TAB Shoshana Izaguirre MD Aug 17, 2016 11:49
[2016-08-17 12:09] VITALS: BP 170/76; PULSE 50; RESP 18; TEMP 96.5; O2SAT 98
[2016-08-17] MEDS ORDERED: ACETAMINOPHEN/HYDROcodone 325 MG/7.5 MG TAB PO PRN (12:30)
[2016-08-17] MEDS: HYDROmorphone HCL PF 1 MG/ML VIAL IV PUSH PRN (12:39)
[2016-08-17] MEDS ORDERED: HYDR-3580 PO (14:15)
== END 2016-08-17 14:51 | disposition home or self-care (01) ==
LOC: PHED 03:17 → PHEDA 06:57 → PH3A 09:24
PROVIDERS: ADMIT Hospitalist; ATTEND Hospitalist
DX: K52.9 Noninfective gastroenteritis and colitis, unspecified (principal); R10.9 Unspecified abdominal pain; E07.9 Disorder of thyroid, unspecified; I12.9 Hypertensive chronic kidney disease with stage 1 through stage 4 chronic kidney disease, or unspecified chronic kidney disease; N18.4 Chronic kidney disease, stage 4 (severe); I25.10 Atherosclerotic heart disease of native coronary artery without angina pectoris; I51.7 Cardiomegaly; R94.31 Abnormal electrocardiogram [ECG] [EKG]; K57.30 Diverticulosis of large intestine without perforation or abscess without bleeding; G47.419 Narcolepsy without cataplexy; E78.00 Pure hypercholesterolemia, unspecified; M19.90 Unspecified osteoarthritis, unspecified site; Z87.11 Personal history of peptic ulcer disease; Z95.5 Presence of coronary angioplasty implant and graft; Z90.49 Acquired absence of other specified parts of digestive tract; Z96.653 Presence of artificial knee joint, bilateral; Z98.84 Bariatric surgery status
CPT/HCPCS: 71010; 74176; 80048; 80053; 81001; 82550; 83605; 83690; 84484; 85025; 93005; 96361; 96374; 96375; 96376; 99285; C9113; G0378; J0744; J1170; J2405; J7030

== ENCOUNTER → 2016-10-10 | Outpatient (CLI) | payer MEDICARE ==
[~2016-10-10] MED LIST changes: -ASCO500C PO; -B COTAB3 SL; -CENTTAB9 PO; +CIPR-9 PO; +HYDR-3580 PO; -IRONCAP2 PO; -LEVO.05 PO; +LEVO50TA4 PO; -LISI-357 PO; +LISI-519 PO; +METO25TA6 PO; -TOPR25TA2 PO; -TRAM50 PO; -VITA400C70 PO
[2016-10-10 10:14] LABS: ALKALINE PHOSPHATASE 72 U/L (45-117); ALT (GPT) 12 U/L (10-53); ANION GAP 9 MEQ/L (5-15); AST (GOT) 15 U/L (15-37); BICARBONATE 23.5 MEQ/L (21.0-32.0); BLOOD UREA NITROGEN 23 MG/DL (7-18); CHLORIDE 111 MEQ/L (98-107); FREE T4 1.03 NG/DL (0.76-1.46); GLOMERULAR FILTRATION RATE 28 ML/MIN (>89); GLUCOSE,FASTING 92 MG/DL (74-99); HDL CHOLESTEROL 55.8 MG/DL (40.0-60.0); LDL CHOLESTEROL 51 MG/DL (0-99); POTASSIUM 4.5 MEQ/L (3.5-5.1); SODIUM (NA) 143 MEQ/L (136-145); TOTAL BILIRUBIN ADULT 0.5 MG/DL (0.2-1.0)
== END ==
LOC: PLAB 07:15
PROVIDERS: ATTEND Internal Medicine Interventional Cardiology
DX: I25.10 Atherosclerotic heart disease of native coronary artery without angina pectoris (principal); E78.2 Mixed hyperlipidemia; I05.9 Rheumatic mitral valve disease, unspecified; I45.89 Other specified conduction disorders; Z79.899 Other long term (current) drug therapy; Z68.30 Body mass index [BMI] 30.0-30.9, adult; Z98.61 Coronary angioplasty status
CPT/HCPCS: 36415; 80053; 80061; 82248; 84439; 84443

== ENCOUNTER 2016-11-23 11:13 | Emergency (ER) | payer MEDICARE ==
[~2016-11-23] VITALS: Ht 165.1 cm; Wt 87.0 kg
[2016-11-23 11:21] VITALS: BP 149/90; PULSE 84; RESP 16; TEMP 97.9; O2SAT 98
--- NOTE | 2016-11-23 12:11 | PD ---
HPI Chief Complaint: Pain: Acute or Chronic Time Seen by Provider: 12:11 Travel History International Travel<30 days: No Contact w/Intl Traveler<30days: No Traveled to known affect area: No History of Present Illness HPI 81-year-old female presents to the emergency department for evaluation of bilateral lower extremity leg pain. Patient states that yesterday she began to have shooting burning pain from behind her knees to her toes bilaterally. States that today the pain is mostly in the left leg. States that she has having some intermittent shooting pain in the right leg. She denies any injury or trauma to her legs. Denies any back pain. States that she feels as though this pain is different than joint pain which is why she was concerned as she has never had this pain before. States that the pain is aggravated with sitting still for too long and improved with walking around. She denies any numbness or tingling, weakness, fever, chills, nausea, vomiting. Denies any history of blood clots. No other complaints. 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 ) Diabetes: No Diminished Hearing: No Gastrointestinal Disorders: No Genitourinary: No Hepatitis: No Hiatal Hernia: No Hypertension: Yes Immune Disorder: No Implanted Vascular Access Dvce: Yes Medical other: Yes (NARCOLEPSY, ARTHRITIS, BACK PROBLEMS) Musculoskeletal: No Neurologic: Yes (NARCOLEPSY) Psychiatric: No Respiratory: No Immunizations Current: Yes (SHINGLES) Shingles: Yes Sleep Apnea: No Thyroid Disease: Yes (HYPO) ?: Not Menopausal: Yes Past Surgical History Abdominal Surgery: Yes (gastric bypass, 95, OVARIAN SURGERY) Appendectomy: Yes Body Medical Devices: bilat knee replaced Cholecystectomy: Yes (1994) Coronary Stent: Yes (1994) Eye Surgery: Yes (CATARACTS) Joint Replacement: Yes (BILATERAL KNEE) Pacemaker: No Tonsillectomy: Yes Other Surgery: Yes (CARPAL TUNNEL) Social History Alcohol Use: No Tobacco Use: No Substance Use: No Allergies-Medications (Allergen,Severity, Reaction): Coded Allergies: No Known Allergies (Verified , 11/23/16) Reported Meds & Prescriptions Reported Meds & Active Scripts Active Reported Aspirin EC Low Dose (Aspirin) 81 Mg Tab 81 Mg PO DAILY Levothyroxine (Levothyroxine Sodium) 50 Mcg Tab 50 Mcg PO DAILY Metoprolol Succinate ER 24 HR (Metoprolol Succinate) 25 Mg Tab 25 Mg PO BID Lisinopril 5 Mg Tab 5 Mg PO DAILY Aldactazide (HCTZ/Spironolactone) 25-25 Mg Tab 1 Tab PO DAILY Review of Systems Except as stated in HPI: all other systems reviewed are Neg Physical Exam Narrative GENERAL: Well-nourished and well-developed pleasant elderly female patient in no acute distress who is nontoxic appearing. SKIN: Warm and dry. HEAD: Normocephalic and atraumatic. EYES: No injection, drainage, or hyphema noted. PERRLA. EOMI. ENT: No nasal drainage noted. Oropharynx is clear. NECK: Supple and the trachea is midline. CARDIOVASCULAR: Regular rate and rhythm. RESPIRATORY: Breath sounds are equal bilaterally with no accessory muscle use, wheezing, rhonchi, or crackles. GASTROINTESTINAL: Abdomen is soft, non-tender, and nondistended. MUSCULOSKELETAL: Mild bilateral posterior calf tenderness. DP pulses are 2+ bilaterally. Capillary refills within normal limits. Sensation is intact. No obvious deformities, swelling, cyanosis, or ecchymosis is present throughout the upper and lower extremities. Patient has full range of motion without any signs of neurovascular compromise. BACK: Nontender without any obvious deformities, bony point tenderness, or crepitus noted throughout the thoracic and lumbar vertebrae. NEUROLOGICAL: Awake, alert, and oriented. Normal speech and gait. Cranial nerves are grossly intact. Data Data Last Documented VS Vital Signs Date Time Temp Pulse Resp B/P Pulse Ox O2 Delivery O2 Flow Rate FiO2 11/23/16 11:21 97.9 84 16 149/90 98 Orders MDM Medical Decision Making Medical Screen Exam Complete: Yes Emergency Medical Condition: Yes Differential Diagnosis Neuropathy versus radiculopathy versus DVT versus other Narrative Course 81-year-old female presents to the emergency department for evaluation of bilateral lower extremity pain. Patient is afebrile, vital signs are stable. The patient's lower extremities are neurovascularly intact. She is not describing claudication and therefore I do not think that this is peripheral arterial in etiology. We'll do ultrasounds to rule out DVT. While waiting for dentures lab technician to perform ultrasound the patient states that she does not want to wait for this test and would like to leave. I did discuss with her that calf pain can be a sign of DVT and that risks of DVT include PE and even . Patient verbalized understanding and still wishes to leave AMA. AMA: The risks of leaving against medical advice without further evaluation treatment were discussed with the patient. These risks include cardiac dysfunction, cardiac dysrhythmia, possible heart attack, possible stroke or . The patient indicated understanding of these risks and appeared to have the capacity to make this decision. Diagnosis Primary Impression: Left against medical advice Additional Impression: Leg pain Qualified Code: M79.604 - Pain in both lower extremities Disposition: 07 AGAINST MEDICAL ADVICE Destiny Duarte Nov 23, 2016 12:11 Destiny Duarte Nov 23, 2016 12:11
== END 2016-11-23 13:25 | disposition left against medical advice (07) ==
LOC: PHEFT 11:13
DX: M79.662 Pain in left lower leg (principal); M79.661 Pain in right lower leg; Z53.29 Procedure and treatment not carried out because of patient's decision for other reasons; I10 Essential (primary) hypertension; E07.9 Disorder of thyroid, unspecified; E78.00 Pure hypercholesterolemia, unspecified; Z86.79 Personal history of other diseases of the circulatory system; Z86.69 Personal history of other diseases of the nervous system and sense organs; Z87.39 Personal history of other diseases of the musculoskeletal system and connective tissue
CPT/HCPCS: 99283

== ENCOUNTER → 2016-12-07 | Outpatient (CLI) | payer MEDICARE ==
[~2016-12-07] MED LIST changes: -CIPR-9 PO; -HYDR-3580 PO
[2016-12-07 09:11] LABS: AUTOMATED NEUTROPHIL # 2.5 TH/MM3 (1.8-7.7); BASOPHIL # 0.1 TH/MM3 (0-0.2); BASOPHIL % 1.1 % (0.0-2.0); EOSINOPHIL # 0.2 TH/MM3 (0-0.4); EOSINOPHIL % 3.4 % (0.0-4.0); HEMATOCRIT 37.6 % (35.0-46.0); HEMO FLAGS DIFF FINAL; LYMPH % 31.2 % (9.0-44.0); LYMPHOCYTE # 1.5 TH/MM3 (1.0-4.8); MEAN CELL VOLUME 88.2 FL (80.0-100.0); MEAN CORPUSCULAR HEMOGLOBIN 29.7 PG (27.0-34.0); MEAN CORPUSCULAR HGB CONC 33.7 % (32.0-36.0); MONO % 10.3 % (0.0-8.0); PLATELET COUNT 337 TH/MM3 (150-450); RED BLOOD COUNT 4.26 MIL/MM3 (4.00-5.30); RED CELL DISTRIBUTION WIDTH 14.1 % (11.6-17.2); WHITE BLOOD COUNT 4.7 TH/MM3 (4.0-11.0)
[2016-12-07 10:00] LABS: ALKALINE PHOSPHATASE 76 U/L (45-117); ALT (GPT) 12 U/L (10-53); ANION GAP 8 MEQ/L (5-15); AST (GOT) 18 U/L (15-37); BICARBONATE 24.4 MEQ/L (21.0-32.0); BLOOD UREA NITROGEN 29 MG/DL (7-18); CHLORIDE 107 MEQ/L (98-107); GLOMERULAR FILTRATION RATE 23 ML/MIN (>89); POTASSIUM 4.9 MEQ/L (3.5-5.1); SODIUM (NA) 139 MEQ/L (136-145); TOTAL BILIRUBIN ADULT 0.5 MG/DL (0.2-1.0)
== END ==
LOC: PLAB 07:00
PROVIDERS: ATTEND Internal Medicine Gastroenterology
DX: R10.84 Generalized abdominal pain (principal)
CPT/HCPCS: 36415; 80053; 85025

== ENCOUNTER → 2017-03-02 | Outpatient (CLI) | payer MEDICARE ==
[2017-03-03 12:01] LABS: BICARBONATE 22.1 MEQ/L (21.0-32.0)
== END ==
LOC: PLAB 10:12
PROVIDERS: ATTEND Family Medicine
DX: E87.5 Hyperkalemia (principal); N18.9 Chronic kidney disease, unspecified
CPT/HCPCS: 36415; 80048

== ENCOUNTER → 2017-03-27 | Outpatient (CLI) | payer MEDICARE ==
[2017-03-27 18:23] LABS: BICARBONATE 14.6 MEQ/L (21.0-32.0); POTASSIUM 4.9 MEQ/L (3.5-5.1)
== END ==
LOC: PLAB 14:25
PROVIDERS: ATTEND Internal Medicine Gastroenterology
DX: E87.5 Hyperkalemia (principal)
CPT/HCPCS: 36415; 80048

== ENCOUNTER → 2017-04-13 | Outpatient (CLI) | payer MEDICARE ==
--- NOTE | 2017-04-13 13:26 | RADRPT ---
EXAM DATE/TIME: 04/13/2017 10:56 [facility] COMPARISON: CT ABDOMEN & PELVIS W/O CONTRAST, August 16, 2016, 5:30. INDICATIONS : Ileostomy. FLUORO TIME: 1.8 minutes IMAGE COUNT: 24 CONTRAST: 1. [facility] MEDICAL HISTORY : twisted bowel. SURGICAL HISTORY : ileostomy ENCOUNTER: Initial ACUITY: 1 day PAIN SCORE: 0/10 LOCATION: Bilateral colon FINDINGS: Initially the examination was performed through the patient's rectum. The patient was very uncomforta ble and could not tolerate moving around on the table due to severe back pain and hip pain. Extensive diverticulosis of sigmoid colon is present. The entire colon could not be field could get contrast u p to the level of mid transverse colon. The patient could not tolerate any more filling of the colon at this time. Next contrast was placed through the patient's ileostomy site and small bowel is visualized immediate ly. CONCLUSION: Gastrografin enema through the patient's rectum and ileostomy site and findings as above. Luis Zamorano MD on April 13, 2017 at 13:21 Board Certified Radiologist. This report was verified electronically.
== END ==
LOC: HRAD 09:59
PROVIDERS: ATTEND Surgery
DX: Z93.2 Ileostomy status (principal)
CPT/HCPCS: 74270

== ENCOUNTER → 2017-05-17 | Outpatient (CLI) | payer MEDICARE ==
[2017-05-17 13:36] LABS: AUTOMATED NEUTROPHIL # 3.5 TH/MM3 (1.8-7.7); BASOPHIL # 0.1 TH/MM3 (0-0.2); BASOPHIL % 1.9 % (0.0-2.0); EOSINOPHIL # 0.1 TH/MM3 (0-0.4); EOSINOPHIL % 2.5 % (0.0-4.0); HEMATOCRIT 29.4 % (35.0-46.0); HEMO FLAGS DIFF FINAL; LYMPH % 21.2 % (9.0-44.0); LYMPHOCYTE # 1.1 TH/MM3 (1.0-4.8); MEAN CELL VOLUME 91.2 FL (80.0-100.0); MEAN CORPUSCULAR HEMOGLOBIN 30.3 PG (27.0-34.0); MEAN CORPUSCULAR HGB CONC 33.2 % (32.0-36.0); MONO % 7.4 % (0.0-8.0); PLATELET COUNT 438 TH/MM3 (150-450); RED BLOOD COUNT 3.23 MIL/MM3 (4.00-5.30); RED CELL DISTRIBUTION WIDTH 13.7 % (11.6-17.2); WHITE BLOOD COUNT 5.3 TH/MM3 (4.0-11.0)
[2017-05-17 13:56] LABS: BICARBONATE 23.7 MEQ/L (21.0-32.0); POTASSIUM 3.9 MEQ/L (3.5-5.1)
== END ==
LOC: PLAB 11:10
PROVIDERS: ATTEND Family Medicine
DX: N18.2 Chronic kidney disease, stage 2 (mild) (principal); E87.5 Hyperkalemia
CPT/HCPCS: 80048; 85025

== ENCOUNTER → 2017-07-18 | Outpatient (CLI) | payer MEDICARE ==
[~2017-07-18] MED LIST changes: +METO1TAB42 PO; -METO25TA6 PO
[2017-07-18 17:28] LABS: POTASSIUM 5.1 MEQ/L (3.5-5.1)
[2017-07-18 17:37] LABS: FREE T4 1.06 NG/DL (0.76-1.46)
== END ==
LOC: PLAB 14:30
PROVIDERS: ATTEND Internal Medicine Interventional Cardiology
DX: I45.89 Other specified conduction disorders (principal); I10 Essential (primary) hypertension; N19 Unspecified kidney failure
CPT/HCPCS: 36415; 82565; 84132; 84295; 84439; 84443; 84520

== ENCOUNTER → 2017-08-30 | Outpatient (CLI) | payer MEDICARE ==
[2017-08-30 08:20] LABS: AUTOMATED NEUTROPHIL # 2.8 TH/MM3 (1.8-7.7); BASOPHIL # 0.1 TH/MM3 (0-0.2); BASOPHIL % 1.2 % (0.0-2.0); EOSINOPHIL # 0.1 TH/MM3 (0-0.4); EOSINOPHIL % 2.9 % (0.0-4.0); HEMOGLOBIN 9.8 GM/DL (11.6-15.3); LYMPH % 31.2 % (9.0-44.0); LYMPHOCYTE # 1.5 TH/MM3 (1.0-4.8); MEAN CORPUSCULAR HEMOGLOBIN 25.7 PG (27.0-34.0); MEAN CORPUSCULAR HGB CONC 32.5 % (32.0-36.0); MEAN PLATELET VOLUME 7.1 FL (7.0-11.0); MONO % 8.7 % (0.0-8.0); MONOCYTE # 0.4 TH/MM3 (0-0.9); PLATELET COUNT 341 TH/MM3 (150-450); WHITE BLOOD COUNT 4.9 TH/MM3 (4.0-11.0)
[2017-08-30 08:47] LABS: ALBUMIN 3.8 GM/DL (3.4-5.0); AST (GOT) 13 U/L (15-37); BICARBONATE 23.4 MEQ/L (21.0-32.0); BLOOD UREA NITROGEN 23 MG/DL (7-18); CALCIUM 8.9 MG/DL (8.5-10.1); CHLORIDE 112 MEQ/L (98-107); CHOLESTEROL 139 MG/DL (120-200); CREATININE 1.46 MG/DL (0.50-1.00); GLOMERULAR FILTRATION RATE 34 ML/MIN (>89); GLUCOSE,FASTING 97 MG/DL (74-99); SODIUM (NA) 142 MEQ/L (136-145); TRIGLYCERIDES 83 MG/DL (42-150)
[2017-08-30 08:57] LABS: % SATURATION IRON PROFILE 8.4 % (20-50); ALKALINE PHOSPHATASE 68 U/L (45-117); ALT (GPT) 11 U/L (10-53); FREE T4 0.97 NG/DL (0.76-1.46); HDL CHOLESTEROL 65.9 MG/DL (40.0-60.0); IRON (FE) 36 MCG/DL (50-170); LDL CHOLESTEROL 57 MG/DL (0-99); TOTAL BILIRUBIN ADULT 0.5 MG/DL (0.2-1.0); TOTAL IRON BINDING CAPACITY 427 MCG/DL (250-450); TOTAL PROTEIN 6.7 GM/DL (6.4-8.2)
== END ==
LOC: PLAB 07:29
PROVIDERS: ATTEND Family Medicine
DX: E78.2 Mixed hyperlipidemia (principal); E03.9 Hypothyroidism, unspecified; I12.9 Hypertensive chronic kidney disease with stage 1 through stage 4 chronic kidney disease, or unspecified chronic kidney disease; N18.2 Chronic kidney disease, stage 2 (mild); D63.1 Anemia in chronic kidney disease; Z79.899 Other long term (current) drug therapy
CPT/HCPCS: 36415; 80053; 80061; 83540; 83550; 84439; 84443; 84480; 85025

== ENCOUNTER → 2017-12-06 | Outpatient (CLI) | payer MEDICARE ==
[2017-12-06 11:19] LABS: ALBUMIN 3.8 GM/DL (3.4-5.0)
[2017-12-06 11:28] LABS: CHOLESTEROL/ HDL RATIO 2.12 RATIO; DIRECT BILIRUBIN ADULT 0.1 MG/DL (0.0-0.2); FREE T4 0.97 NG/DL (0.76-1.46); HDL CHOLESTEROL 60.6 MG/DL (40.0-60.0); INDIRECT BILIRUBIN 0.3 MG/DL (0.0-0.8); TOTAL BILIRUBIN ADULT 0.4 MG/DL (0.2-1.0); TOTAL PROTEIN 6.5 GM/DL (6.4-8.2)
== END ==
LOC: PLAB 08:06
PROVIDERS: ATTEND Family Medicine
DX: E78.2 Mixed hyperlipidemia (principal); E66.9 Obesity, unspecified; Z79.899 Other long term (current) drug therapy
CPT/HCPCS: 36415; 80061; 80076; 84439; 84443; 84480